=== PATIENT | female | born 1995 | race Asian ===

== ENCOUNTER 2019-10-09 20:49 | Emergency (ER) | payer SELFPAY ==
[2019-10-09 20:57] VITALS: BP 127/76; PULSE 103
--- NOTE | 2019-10-09 20:59 | EDM.PDOC ---
ED HPI GENERAL MEDICAL PROBLEM - General Chief Complaint: Respiratory Problem Stated Complaint: sore throat cough Time Seen by Provider: 10/09/19 20:55 Source of Information: Reports: Patient, RN Notes Reviewed History Limitations: Reports: No Limitations - History of Present Illness INITIAL COMMENTS - FREE TEXT/NARRATIVE: Patient is a 23-year-old female who presents to the ED for evaluation of a cough and sore throat. Patient notes she is 31 weeks , she is a G1, P0. Patient notes that she has had a sore throat and cough for the past 2 days. 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 However this is highly likely. She did receive her flu shot this season. Her SUSHI CHEF is Dr. Molina, she states that the is progressing well and not having any issues at this time. She notes that she has some mild nausea, when she tries to drink a lot of fluids she ends up throwing these up, she states that she does have body aches all over, she does not note that she has had any fevers or chills at home. She has tried some erlin tea with honey to see if this helps the throat, however she feels as if it made her voice a little bit more hoarse than it normally is. Denies any chest pain or shortness of breath, or any problems urinating. Throat Pain Score (Numeric/FACES): 4 - Related Data Allergies Allergy/AdvReac Type Severity Reaction Status Date / Time No Known Allergies Allergy Verified 10/09/19 20:54 Home Meds: Home Meds Oseltamivir [Tamiflu] 75 mg PO BID #10 cap 10/09/19 [Rx] Past Medical History SUSHI CHEF History: Reports: : 1 Para: 0 Social & Family History - Caffeine Use Caffeine Use: Reports: None ED ROS GENERAL - Review of Systems Review Of Systems: See Below Constitutional: Reports: Malaise (generalized). Denies: Fever, Chills HEENT: Reports: Rhinitis, Throat Pain. Denies: Ear Pain, Throat Swelling Respiratory: Reports: Cough. Denies: Shortness of Breath, Sputum Cardiovascular: Denies: Chest Pain GI/Abdominal: Reports: Nausea, Vomiting. Denies: Abdominal Pain, Constipation, Diarrhea : Denies: Dysuria, Frequency, Urgency ED EXAM, GENERAL - Physical Exam Exam: See Below Exam Limited By: No Limitations General Appearance: Alert, WD/WN, No Apparent Distress Eye Exam: Bilateral Eye: EOMI, Normal Inspection, PERRL Ears: Normal External Exam, Normal Canal, Hearing Grossly Normal, Normal TMs Nose: Normal Inspection, No Blood, Nasal Swelling (bilateral injected turbinates ) Throat/Mouth: Normal Inspection, Normal Lips, Normal Teeth, Normal Gums, Normal Oropharynx, Normal Voice, No Airway Compromise Head: Atraumatic, Normocephalic Neck: Normal Inspection, Supple, Non-Tender, Full Range of Motion Respiratory/Chest: No Respiratory Distress, Lungs Clear, Normal Breath Sounds, No Accessory Muscle Use, Chest Non-Tender Cardiovascular: Normal Peripheral Pulses, Regular Rate, Rhythm, No Edema, No Murmur Peripheral Pulses: 3+: Radial (L), Radial (R) GI/Abdominal: Normal Bowel Sounds, Soft, Non-Tender, No Distention, No Mass (Female) Exam: Deferred, Other ( movement appreciated) Extremities: Normal Inspection, Normal Capillary Refill Neurological: Alert, Oriented, Normal Cognition, No Motor/Sensory Deficits Psychiatric: Normal Affect, Normal Mood Skin Exam: Warm, Dry, Intact, Normal Color, No Rash Course - Vital Signs Last Recorded V/S: Last Vital Signs Temp 97.1 F 10/09/19 20:55 Pulse 103 H 10/09/19 20:55 Resp 18 10/09/19 20:55 BP 127/76 10/09/19 20:55 Pulse Ox 95 10/09/19 20:55 - Orders/Labs/Meds Orders: Active Orders 24 hr Category Date Time Status CULTURE STREP A CONFIRMATION [RM] Stat Lab 10/09/19 21:00 Results STREP SCRN A RAPID W CULT CONF [RM] Stat Lab 10/09/19 21:00 Results - Re-Assessments/Exams Free Text/Narrative Re-Assessment/Exam: 10/09/19 21:12 Patient presents to the ED for evaluation of a sore throat and a cough. She will be screened for influenza and strep at this time. However I do believe if the influenza is negative, this might just be a viral upper respiratory infection. Patient will be given a sheet of [id number] medications that are safe to use in for future use. 10/09/19 21:30 Patient did test positive for influenza B at this time. Strep screen was negative, but will be sent for culture for confirmation. Patient would like to start on Tamiflu. Departure - Departure Time of Disposition: 21:30 Disposition: Home, Self-Care 01 Condition: Fair Clinical Impression: Influenza B - Discharge Information *PRESCRIPTION DRUG MONITORING PROGRAM REVIEWED*: No *COPY OF PRESCRIPTION DRUG MONITORING REPORT IN PATIENT KOBY: No Prescriptions: Oseltamivir [Tamiflu] 75 mg PO BID #10 cap Instructions: Influenza, Adult, [id number] Referrals: Lida Molina MD [Primary Care Provider] - Forms: ED Department Discharge Additional Instructions: You have been evaluated in the ED for your sore throat and cough. You did test positive for influenza B. Strep screen was negative at today's visit, however this will be sent for culture for confirmation, you will be made notified if you should need antibiotics for this. Please try to limit your exposure to others until you are 24 hours fever free. You were given a prescription for Tamiflu, please take 1 tab twice daily for the next 5 days. You may also take Tylenol 500 mg every 6 hours as needed for further relief. You were given a educational handout on medications that are safe to take in , please use at your leisure to help guide medication choices during your . If there are any questions, please do not hesitate to ask your SUSHI CHEF. Recommend clear fluid intake as well as a bland diet until you can tolerate normal foods. However if you feel hungry, please eat. Please return to the ED if your symptoms should change or worsen. Sepsis Event Note - Evaluation Sepsis Screening Result: No Definite Risk - Focused Exam Vital Signs: Vital Signs Temp Pulse Resp BP Pulse Ox 10/09/19 20:55 97.1 F 103 H 18 127/76 95 Date Exam was Performed: 10/09/19 Time Exam was Performed: 21:33 - My Orders Last 24 Hours: My Active Orders 10/09/19 21:00 CULTURE STREP A CONFIRMATION [RM] Stat STREP SCRN A RAPID W CULT CONF [RM] Stat - Assessment/Plan Last 24 Hours: My Active Orders 10/09/19 21:00 CULTURE STREP A CONFIRMATION [RM] Stat STREP SCRN A RAPID W CULT CONF [RM] Stat
== END 2019-10-09 22:02 | disposition home or self-care (01) ==
LOC: JD.ED 20:49
DX: O98.513 Other viral diseases complicating pregnancy, third trimester (principal); J11.1 Influenza due to unidentified influenza virus with other respiratory manifestations; Z3A.31 31 weeks gestation of pregnancy
CPT/HCPCS: 87081; 87430; 87804; 99282; 99283

== ENCOUNTER 2019-11-20 23:30 | Inpatient (IN) | payer BC, OTHER, SELFPAY ==
[2019-11-21] MEDS ORDERED: Promethazine 25 MG/ML SDV IM ONE (01:43)
[2019-11-21] MEDS ORDERED: Morphine 4 MG/ML Syringe IM ONE (01:43)
[2019-11-21] MEDS ORDERED: Ondansetron 4 MG/2 ML SDV IVPUSH PRN (05:08)
[2019-11-21] MEDS ORDERED: Nalbuphine 10 MG/ML Syringe IVPUSH PRN (05:08)
[2019-11-21] MEDS ORDERED: Sodium Chloride 0.9% 10 ML Syringe FLUSH PRN (05:08)
[2019-11-21] MEDS ORDERED: Oxytocin/Lactated Ringers 10 UNIT/1,000 ML BAG IV SCH (05:15)
--- NOTE | 2019-11-21 07:39 | PCM.LDHP ---
L&D History of Present Illness - General Date of Service: 11/21/19 Admit Problem/Dx: Patient Status Order with Admit Dx/Problem 11/20/19 23:38 Patient Status [ADT] Routine 11/21/19 05:08 Patient Status [ADT] Routine Admission Diagnosis/Problem Admission Diagnosis/Problem - History of Present Illness Introduction:: 24 year old with regular contractions. Cervical change from 3 to 4.5. Pain Score: 9 - Related Data Allergies/Adverse Reactions: Allergies Allergy/AdvReac Type Severity Reaction Status Date / Time No Known Allergies Allergy Verified 11/20/19 23:37 Home Medications: Home Meds Vits #93/Iron Fum/FA [ Formula Tablet] 11/20/19 [History] Past Medical History - Past Health History Medical/Surgical History: Denies Medical/Surgical History Cardiovascular History: Reports: Other (See Below) Other Cardiovascular History: patient states she had cardiac workup in 2017 but does not specifically know for what. 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 OB/BYN History: , currently 31 weeks pragnant Neurological History: Reports: Migraines Social & Family History - Tobacco Use Smoking Status *Q: Never Smoker - Caffeine Use Caffeine Use: Reports: None - Recreational Drug Use Recreational Drug Use: No H&P Review of Systems - Review of Systems: Review Of Systems: See Below General: Reports: No Symptoms HEENT: Reports: No Symptoms Pulmonary: Reports: No Symptoms Cardiovascular: Reports: No Symptoms Gastrointestinal: Reports: No Symptoms Genitourinary: Reports: No Symptoms Musculoskeletal: Reports: No Symptoms Skin: Reports: No Symptoms Psychiatric: Reports: No Symptoms Neurological: Reports: No Symptoms Hematologic/Lymphatic: Reports: No Symptoms Immunologic: Reports: No Symptoms L&D Exam - Exam Exam: See Below - Vital Signs Vital Signs: Last Vital Signs Temp 36.6 C 11/20/19 23:36 Pulse 79 11/20/19 23:36 Resp 15 11/20/19 23:36 BP 138/74 11/20/19 23:36 Pulse Ox Weight: 80.558 kg - OB Specific Contraction Intensity: Moderate to Strong Movement: Active Heart Tones: Present Heart Rate (FHR) Variability: Moderate (6-25 bmp) Presentation: Vertex - Garcia Score Garcia Score Cervix Position: Midposition Garcia Score Consistency: Soft Garcia Score Effacement: 51-70% Garcia Score Dilation: > 5 cm Garcia Score Infant's Station: -2 Garcia Score Total: 9 - Exam General: Alert, Oriented HEENT: PERRLA, Conjunctiva Clear, EACs Clear, EOMI, Hearing Intact, Mucosa Moist & [place], Nares Patent, Normal Nasal Septum, Posterior Pharynx Clear, TMs Clear Neck: Supple, Trachea Midline Lungs: Clear to Auscultation, Normal Respiratory Effort Cardiovascular: Regular Rate, Regular Rhythm GI/Abdominal Exam: Normal Bowel Sounds, Soft, Non-Tender, No Organomegaly, No Distention, No Abnormal Bruit, No Mass, Pelvis Stable Rectal Exam: Normal Exam, Normal Rectal Tone Back Exam: Normal Inspection, Full Range of Motion Extremities: Normal Inspection, Normal Range of Motion, Non-Tender, No Pedal Edema, Normal Capillary Refill Skin: Warm, Dry, Intact Neurological: Cranial Nerves Intact, Reflexes Equal Bilateral Psychiatric: Alert, Normal Affect, Normal Mood - Patient Data Lab Results Last 24 hrs: Laboratory Results - last 24 hr 11/21/19 11/21/19 Range/Units 00:28 05:35 WBC 15.80 H (3.98-10.04) K/mm3 RBC 3.87 L (3.98-5.22) M/mm3 Hgb 11.9 (11.2-15.7) gm/dl Hct 36.9 (34.1-44.9) % MCV 95.3 H (79.4-94.8) fl MCH 30.7 (25.6-32.2) pg MCHC 32.2 (32.2-35.5) g/dl RDW Std Deviation 50.7 H (36.4-46.3) fL Plt Count 229 (182-369) K/mm3 MPV 10.6 (9.4-12.3) fl Neut % (Auto) 77.9 H (34.0-71.1) % Lymph % (Auto) 12.4 L (19.3-51.7) % [facility] % (Auto) 8.7 (4.7-12.5) % Eos % (Auto) 0.3 L (0.7-5.8) Baso % (Auto) 0.1 (0.1-1.2) % Neut # (Auto) 12.30 H (1.56-6.13) K/mm3 Lymph # (Auto) 1.96 (1.18-3.74) K/mm3 [facility] # (Auto) 1.38 H (0.24-0.36) K/mm3 Eos # (Auto) 0.04 (0.04-0.36) K/mm3 Baso # (Auto) 0.02 (0.01-0.08) K/mm3 Urine Color Yellow (Yellow) Urine Appearance Clear (Clear) Urine pH 7.0 (5.0-8.0) Ur Specific [place] 1.015 (1.005-1.030) Urine Protein Negative (Negative) Urine Glucose (UA) Negative (Negative) Urine Ketones Negative (Negative) Urine Occult Blood 2+ H (Negative) Urine Nitrite Negative (Negative) Urine Bilirubin Negative (Negative) Urine Urobilinogen 0.2 (0.2-1.0) Ur Leukocyte Esterase Trace H (Negative) Urine RBC 0-5 (0-5) /hpf Urine WBC 0-5 (0-5) /hpf Ur Squamous Epith Cells 0-5 (0-5) /hpf Urine Bacteria Few (FEW) /hpf Urine Mucus Rare (FEW) /hpf Result Diagrams: 11/21/19 05:35 Problem List Initiated/Reviewed/Updated: Yes Orders Last 24hrs: Active Orders 24 hr Category Date Time Status Patient Status [ADT] Routine ADT 11/21/19 05:08 Active Activity as Tolerated [RC] PFP Care 11/21/19 05:08 Active Communication Order [RC] ASDIRECTED Care 11/21/19 05:08 Active Heart Tones [RC] ASDIRECTED Care 11/21/19 05:08 Active Non Stress Test [RC] PER UNIT ROUTINE Care 11/20/19 23:38 Active Notify Provider [RC] PFP Care 11/21/19 05:08 Active Notify Provider [RC] PRN Care 11/21/19 05:08 Active Peripheral IV Care [RC] . DIRECTED Care 11/21/19 05:08 Active Vital Signs [RC] PER UNIT ROUTINE Care 11/20/19 23:38 Active Regular Diet [DIET] Diet 11/21/19 Breakfast Active RAPID PLASMA REAGIN,RPR [CHEM] Routine Lab 11/21/19 05:35 Received TYPE AND SCREEN [BBK] Stat Lab 11/21/19 05:35 Received Lactated Ringers [Ringers, Lactated] 1,000 ml Med 11/21/19 05:15 Active IV ASDIRECTED Nalbuphine [Nubain] Med 11/21/19 05:08 Active 10 mg IVPUSH Q2H PRN Ondansetron [Zofran] Med 11/21/19 05:08 Active 4 mg IVPUSH Q4H PRN Oxytocin/Lactated Ringers [Pitocin in LR 10 Units/1,000 Med 11/21/19 05:15 Active ML] 10 unit in 1,000 ml IV .CONTINUOUS Sodium Chloride 0.9% [Saline Flush] Med 11/21/19 05:08 Active 10 ml FLUSH ASDIRECTED PRN Electronic Heart Tones Ext w TOCO [WOMSER] Oth 11/21/19 05:08 Ordered Routine Electronic Heart Tones Internal [WOMSER] Per Unit Oth 11/21/19 05:08 Ordered Routine Peripheral IV Insertion Adult [OM.PC] Routine Oth 11/21/19 05:08 Ordered Resuscitation Status Routine Resus Stat 11/20/19 23:38 Ordered Medication Orders Lactated Ringer's (Ringers, Lactated) 1,000 mls @ 100 mls/hr IV ASDIRECTED RAOUL Oxytocin/Lactated Ringer's (Pitocin In Lr 10 Units/1,000 Ml) 10 unit in 1,000 mls @ 500 mls/hr IV .CONTINUOUS RAOUL Nalbuphine HCl (Nubain) 10 mg IVPUSH Q2H PRN PRN Reason: Pain Ondansetron HCl (Zofran) 4 mg IVPUSH Q4H PRN PRN Reason: Nausea/Vomiting Sodium Chloride (Saline Flush) 10 ml FLUSH ASDIRECTED PRN PRN Reason: Keep Vein Open Assessment/Plan Comment:: Admit AROM Augment if needed. Anticipate unless otherwise indicated
[2019-11-21] MEDS: Lactated Ringers 1,000 ML IV SCH ×3 (07:56→11:33)
[2019-11-21] MEDS ORDERED: ePHEDrine 50 MG/ML SDV IVPUSH PRN (08:26)
[2019-11-21] MEDS ORDERED: Bupivacaine/fentaNYL/NS 100 ML Bag EPIDUR PRN (08:26)
[2019-11-21] MEDS ORDERED: fentaNYL 100 MCG/2 ML SDV EPIDUR PRN (08:26)
[2019-11-21] MEDS ORDERED: diphenhydrAMINE 50 MG/ML SDV IVPUSH PRN (08:26)
--- NOTE | 2019-11-21 08:57 | PCM.PREANE ---
Preanesthetic Assessment - Anesthesia/Transfusion/Family Hx Anesthesia History: No Prior Anesthesia Transfusion History: No Prior Transfusion(s) - Review of Systems General: No Symptoms Pulmonary: No Symptoms Cardiovascular: No Symptoms Gastrointestinal: No Symptoms Neurological: No Symptoms Other: Reports: None - Physical Assessment Vital Signs: Last Vital Signs Temp 98 F 11/20/19 23:36 Pulse 79 11/20/19 23:36 Resp 15 11/20/19 23:36 BP 138/74 11/20/19 23:36 Pulse Ox Height: 1.63 m Weight: 80.558 kg ASA Class: 2 Mental Status: Alert & Oriented x3 Airway Class: Mallampati = 3 Dentition: Reports: Normal Dentition Thyro-Mental Finger Breadths: 3 Mouth Opening Finger Breadths: 3 ROM/Head Extension: Full Lungs: Clear to Auscultation, Normal Respiratory Effort Cardiovascular: Regular Rate, Regular Rhythm - Lab Values: Laboratory Last Values WBC 15.80 K/mm3 (3.98-10.04) H 11/21/19 05:35 RBC 3.87 M/mm3 (3.98-5.22) L 11/21/19 05:35 Hgb 11.9 gm/dl (11.2-15.7) 11/21/19 05:35 Hct 36.9 % (34.1-44.9) 11/21/19 05:35 MCV 95.3 fl (79.4-94.8) H 11/21/19 05:35 MCH 30.7 pg (25.6-32.2) 11/21/19 05:35 MCHC 32.2 g/dl (32.2-35.5) 11/21/19 05:35 RDW Std Deviation 50.7 fL (36.4-46.3) H 11/21/19 05:35 Plt Count 229 K/mm3 (182-369) 11/21/19 05:35 MPV 10.6 fl (9.4-12.3) 11/21/19 05:35 Neut % (Auto) 77.9 % (34.0-71.1) H 11/21/19 05:35 Lymph % (Auto) 12.4 % (19.3-51.7) L 11/21/19 05:35 [place] % (Auto) 8.7 % (4.7-12.5) 11/21/19 05:35 Eos % (Auto) 0.3 (0.7-5.8) L 11/21/19 05:35 Baso % (Auto) 0.1 % (0.1-1.2) 11/21/19 05:35 Neut # (Auto) 12.30 K/mm3 (1.56-6.13) H 11/21/19 05:35 Lymph # (Auto) 1.96 K/mm3 (1.18-3.74) 11/21/19 05:35 [place] # (Auto) 1.38 K/mm3 (0.24-0.36) H 11/21/19 05:35 Eos # (Auto) 0.04 K/mm3 (0.04-0.36) 11/21/19 05:35 Baso # (Auto) 0.02 K/mm3 (0.01-0.08) 11/21/19 05:35 Urine Color Yellow (Yellow) 11/21/19 00:28 Urine Appearance Clear (Clear) 11/21/19 00: Urine pH 7.0 (5.0-8.0) 11/21/19 00:28 Ur Specific [place] 1.015 (1.005-1.030) 11/21/19 00: Urine Protein Negative (Negative) 11/21/19 00: Urine Glucose (UA) Negative (Negative) 11/21/19 00: Urine Ketones Negative (Negative) 11/21/19 00: Urine Occult Blood 2+ (Negative) H 11/21/19 00: Urine Nitrite Negative (Negative) 11/21/19 00: Urine Bilirubin Negative (Negative) 11/21/19 00: Urine Urobilinogen 0.2 (0.2-1.0) 11/21/19 00:28 Ur Leukocyte Esterase Trace (Negative) H 11/21/19 00: Urine RBC 0-5 /hpf (0-5) 11/21/19 00: Urine WBC 0-5 /hpf (0-5) 11/21/19 00: Ur Squamous Epith Cells 0-5 /hpf (0-5) 11/21/19 00: Urine Bacteria Few /hpf (FEW) 11/21/19 00: Urine Mucus Rare /hpf (FEW) 11/21/19 00:28 - Allergies Allergies/Adverse Reactions: Allergies Allergy/AdvReac Type Severity Reaction Status Date / Time No Known Allergies Allergy Verified 11/20/19 23:37 - Acknowledgements Anesthesia Type Planned: Epidural Pt an Appropriate Candidate for the Planned Anesthesia: Yes Alternatives and Risks of Anesthesia Discussed w Pt/Guardian: Yes Pt/Guardian Understands and Agrees with Anesthesia Plan: Yes PreAnesthesia Questionnaire - Past Health History Medical/Surgical History: Denies Medical/Surgical History Cardiovascular History: Reports: Other (See Below) Other Cardiovascular History: patient states she had cardiac workup in 2017 but does not specifically know for what. 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 OB/BYN History: , currently 31 weeks pragnant Neurological History: Reports: Migraines - SUBSTANCE USE Smoking Status *Q: Never Smoker Recreational Drug Use History: No - HOME MEDS Home Medications: Home Meds Vits #93/Iron Fum/FA [ Formula Tablet] 11/20/19 [History] - CURRENT (IN HOUSE) MEDS Current Meds: Current Medications Diphenhydramine HCl (Benadryl) 25 mg IVPUSH Q6H PRN PRN Reason: pruritis Ephedrine Sulfate (Ephedrine Sulfate) 5 mg IVPUSH ASDIRECTED PRN PRN Reason: Hypotension Fentanyl (Sublimaze) 100 mcg EPIDUR Q3H PRN PRN Reason: Pain Fentanyl/Bupivacaine HCl (Fentanyl/Bupivacaine/Ns 2 Mcg-0.125% 100 Ml) 100 ml EPIDUR ASDIRECTED PRN PRN Reason: Pain Lactated Ringer's (Ringers, Lactated) 1,000 mls @ 100 mls/hr IV ASDIRECTED RAOUL Last Admin: 11/21/19 07:56 Dose: 100 mls/hr Oxytocin/Lactated Ringer's (Pitocin In Lr 10 Units/1,000 Ml) 10 unit in 1,000 mls @ 500 mls/hr IV .CONTINUOUS RAOUL Nalbuphine HCl (Nubain) 10 mg IVPUSH Q2H PRN PRN Reason: Pain Ondansetron HCl (Zofran) 4 mg IVPUSH Q4H PRN PRN Reason: Nausea/Vomiting Sodium Chloride (Saline Flush) 10 ml FLUSH ASDIRECTED PRN PRN Reason: Keep Vein Open Discontinued Medications Morphine Sulfate (Morphine) 4 mg IM ONETIME ONE Stop: 11/21/19 01:44 Last Admin: 11/21/19 01:58 Dose: 4 mg Promethazine HCl (Phenergan) 25 mg IM ONETIME ONE Stop: 11/21/19 01:44 Last Admin: 11/21/19 01:57 Dose: 25 mg
--- NOTE | 2019-11-21 15:31 | PCM.SN ---
- Free Text/Narrative Note: Stage I - Patient presented in labor. AROM meconium stained fluid. Progressed to complete with epidural. Stage II - of viable male, weight 2980, 8/9 APGARS at 1513. Head delivered in controlled manner over intact perineum. Body and shoulders followed without difficulty. Positive cry. To maternal abdomen. Cord clamped and cut. Stage III - of intact placenta. 3vc. EBL 400. Small bilateral labial lacerations repaired with 3-0 vicryl.
[2019-11-21] MEDS ORDERED: Benzocaine/Menthol 20%-0.5% Spray 56 GM Canister TOP PRN (15:56)
[2019-11-21] MEDS ORDERED: Hydrocortisone Acetate 25 MG Supp RECTAL PRN (15:56)
[2019-11-21] MEDS ORDERED: Witch Hazel Medicated Pads 40/Jar TOP PRN (15:56)
[2019-11-21] MEDS: Ibuprofen 600 MG Tab PO PRN (21:26)
[2019-11-22] MEDS ORDERED: Lidocaine 1.5% with EPINEPHrine 1:200,000 5 ML Amp ONE
[2019-11-22] MEDS: Ibuprofen 600 MG Tab PO PRN (03:23)
--- NOTE | 2019-11-22 07:46 | PCM.PNPP ---
- General Info Date of Service: 11/22/19 Functional Status: Reports: Pain Controlled - Review of Systems General: Reports: No Symptoms HEENT: Reports: No Symptoms Pulmonary: Reports: No Symptoms Cardiovascular: Reports: No Symptoms Gastrointestinal: Reports: No Symptoms Genitourinary: Reports: No Symptoms Musculoskeletal: Reports: No Symptoms Skin: Reports: No Symptoms Neurological: Reports: No Symptoms Psychiatric: Reports: No Symptoms - Patient Data Vital Signs - Most Recent: Last Vital Signs Temp 36.6 C 11/22/19 02:44 Pulse 98 11/22/19 02:44 Resp 16 11/22/19 02:44 BP 122/77 11/22/19 02:44 Pulse Ox 99 11/22/19 02:44 Weight - Most Recent: 80.558 kg I&O - Last 24 Hours: Intake & Output 11/21/19 11/22/19 11/22/19 22:59 06:59 14:59 Intake Total 2710 Balance 2710 Lab Results - Last 24 Hours: Laboratory Results - last 24 hr 11/21/19 11/21/19 Range/Units 05:35 05:35 RPR Non-reactive (NONREACTIVE) Blood Type O POSITIVE Gel Antibody Screen Negative Med Orders - Current: Current Medications Benzocaine/Menthol (Dermoplast Pain Relief [place]) 0 gm TOP ASDIRECTED PRN PRN Reason: Perineal Comfort Measure Last Admin: 11/21/19 17:17 Dose: 1 can Hydrocortisone Acetate (Anucort-Hc) 25 mg RECTAL BID PRN PRN Reason: Hemorrhoid pain Ibuprofen (Motrin) 600 mg PO Q6H PRN PRN Reason: Mild pain or fever Last Admin: 11/22/19 03:23 Dose: 600 mg Witch Shannan (Tucks) 1 pad TOP ASDIRECTED PRN PRN Reason: Pain Last Admin: 11/21/19 17:16 Dose: 1 tub Discontinued Medications Diphenhydramine HCl (Benadryl) 25 mg IVPUSH Q6H PRN PRN Reason: pruritis Ephedrine Sulfate (Ephedrine Sulfate) 5 mg IVPUSH ASDIRECTED PRN PRN Reason: Hypotension Fentanyl (Sublimaze) 100 mcg EPIDUR Q3H PRN PRN Reason: Pain Last Admin: 11/21/19 09:07 Dose: 100 mcg Fentanyl/Bupivacaine HCl (Fentanyl/Bupivacaine/Ns 2 Mcg-0.125% 100 Ml) 100 ml EPIDUR ASDIRECTED PRN PRN Reason: Pain Last Admin: 11/21/19 09:07 Dose: 100 ml Lactated Ringer's (Ringers, Lactated) 1,000 mls @ 100 mls/hr IV ASDIRECTED RAOUL Last Admin: 11/21/19 11:33 Dose: 100 mls/hr Oxytocin/Lactated Ringer's (Pitocin In Lr 10 Units/1,000 Ml) 10 unit in 1,000 mls @ 500 mls/hr IV .CONTINUOUS RAOUL Last Admin: 11/21/19 15:15 Dose: 500 mls/hr Morphine Sulfate (Morphine) 4 mg IM ONETIME ONE Stop: 11/21/19 01:44 Last Admin: 11/21/19 01:58 Dose: 4 mg Nalbuphine HCl (Nubain) 10 mg IVPUSH Q2H PRN PRN Reason: Pain Ondansetron HCl (Zofran) 4 mg IVPUSH Q4H PRN PRN Reason: Nausea/Vomiting Promethazine HCl (Phenergan) 25 mg IM ONETIME ONE Stop: 11/21/19 01:44 Last Admin: 11/21/19 01:57 Dose: 25 mg Sodium Chloride (Saline Flush) 10 ml FLUSH ASDIRECTED PRN PRN Reason: Keep Vein Open - Infant Interaction Infant Disposition, : to Nursery Support Person: Significant Other - Recovery Exam Fundal Tone: Firm Fundal Level: At Umbilicus Fundal Placement: Midline Lochia Amount: Small Lochia Color: Rubra/Red Perineum Description: Other (see below) Other Perinuem Description: 1st degree with repair Bladder Status: Voiding Urinary Elimination: Voided - Exam General: Alert, Oriented HEENT: Pupils Equal Neck: Supple Lungs: Clear to Auscultation, Normal Respiratory Effort Cardiovascular: Regular Rate, Regular Rhythm GI/Abdominal Exam: Normal Bowel Sounds, Soft, Non-Tender, No Organomegaly, No Distention, No Abnormal Bruit, No Mass Extremities: Normal Inspection, Normal Range of Motion, Non-Tender, No Pedal Edema, Normal Capillary Refill Skin: Warm, Dry, Intact Wound/Incisions: Healing Well Neurological: No New Focal Deficit Psy/Mental Status: Alert, Normal Affect, Normal Mood - Problem List Review Problem List Initiated/Reviewed/Updated: Yes - My Orders Last 24 Hours: My Active Orders 11/21/19 15:56 Activity as Tolerated [RC] PER UNIT ROUTINE Vital Signs [RC] 09,13,21,03 Benzocaine/Menthol [Dermoplast Pain Relief [place]] See Dose Instructions TOP ASDIRECTED PRN Hydrocortisone Acetate [Anucort-HC] 25 mg RECTAL BID PRN Ibuprofen [Motrin] 600 mg PO Q6H PRN Witch Shannan [Tucks] 1 pad TOP ASDIRECTED PRN Assess Lochia [WOMSER] Per Unit Routine Assess Uterine Involution [WOMSER] Per Unit Routine Breast Pump [WOMSER] Per Unit Routine Heat Therapy [OM.PC] PRN Medication Administration Instruction [OM.PC] Routine Perineal Care [OM.PC] Per Unit Routine Sitz Bath [OM.PC] Per Unit Routine 11/22/19 15:56 Heat Therapy [OM.PC] PRN - Assessment Assessment:: PPD1 Doing well. Breast feeding going well. NO complaints - Plan Plan:: Probably home tomorrow
--- NOTE | 2019-11-22 17:11 | PCM48HPAN ---
Post Anesthesia Note - EVALUATION WITHIN 48HRS OF ANESTHETIC Vital Signs in Normal Range: Yes Patient Participated in Evaluation: Yes Respiratory Function Stable: Yes Airway Patent: Yes Cardiovascular Function Stable: Yes Hydration Status Stable: Yes Pain Control Satisfactory: Yes Nausea and Vomiting Control Satisfactory: Yes Mental Status Recovered: Yes Vital Signs: Last Vital Signs Temp 97.2 F 11/22/19 09:29 Pulse 85 11/22/19 09:29 Resp 14 11/22/19 09:29 BP 115/92 H 11/22/19 09:29 Pulse Ox 99 11/22/19 09:29 - COMMENTS/OBSERVATIONS Free Text/Narrative:: Patient is on her day 1. Stated understanding about possible backaches following epidural anesthesia. Mentions having some minor back soreness at this time. Explanation given about importance of avoiding back straining. Denies any headache or lightheadedness at this time. Comfortable now. Ambulating, no difficulty urinating.
[2019-11-23 03:29] VITALS: BP 119/70; PULSE 82
--- NOTE | 2019-11-26 10:22 | PCM.DCSUM1 ---
Discharge Summary - Hospital Course Diagnosis: Stroke: No - Discharge Data Discharge Date: 11/23/19 Discharge Disposition: Home, Self-Care 01 Condition: Good - Referral to Home Health Primary Care Physician: Jessica Chen MD - Patient Instructions Diet: Usual Diet as Tolerated Activity: No Strenuous Activities Driving: May Drive Today Showering/Bathing: May Shower Wound/Incision Care: Keep Operative Site/Wound Site Clean and Dry Notify Provider of: Fever, Increased Pain, Swelling and Redness, Drainage, Nausea and/or Vomiting - Discharge Plan *PRESCRIPTION DRUG MONITORING PROGRAM REVIEWED*: No *COPY OF PRESCRIPTION DRUG MONITORING REPORT IN PATIENT KOBY: No Home Medications: Home Meds Vits #93/Iron Fum/FA [ Formula Tablet] 11/20/19 [History] Patient Handouts: Vaginal Delivery, Care After Referrals: Lida Molina MD [Physician] - (2 weeks) - Discharge Summary/Plan Comment DC Time >30 min.: No - General Info Date of Service: 11/23/19 Functional Status: Reports: Pain Controlled - Review of Systems General: Reports: No Symptoms HEENT: Reports: No Symptoms Pulmonary: Reports: No Symptoms Cardiovascular: Reports: No Symptoms Gastrointestinal: Reports: No Symptoms Genitourinary: Reports: No Symptoms Musculoskeletal: Reports: No Symptoms Skin: Reports: No Symptoms Neurological: Reports: No Symptoms Psychiatric: Reports: No Symptoms - Patient Data Vitals - Most Recent: Last Vital Signs Temp 36.7 C 11/23/19 03:17 Pulse 82 11/23/19 03:17 Resp 16 11/23/19 03:17 BP 119/70 11/23/19 03:17 Pulse Ox 97 11/23/19 03:17 Weight - Most Recent: 80.558 kg Med Orders - Current: Current Medications Discontinued Medications Benzocaine/Menthol (Dermoplast Pain Relief [place]) 0 gm TOP ASDIRECTED PRN PRN Reason: Perineal Comfort Measure Last Admin: 11/21/19 17:17 Dose: 1 can Diphenhydramine HCl (Benadryl) 25 mg IVPUSH Q6H PRN PRN Reason: pruritis Ephedrine Sulfate (Ephedrine Sulfate) 5 mg IVPUSH ASDIRECTED PRN PRN Reason: Hypotension Fentanyl (Sublimaze) 100 mcg EPIDUR Q3H PRN PRN Reason: Pain Last Admin: 11/21/19 09:07 Dose: 100 mcg Fentanyl/Bupivacaine HCl (Fentanyl/Bupivacaine/Ns 2 Mcg-0.125% 100 Ml) 100 ml EPIDUR ASDIRECTED PRN PRN Reason: Pain Last Admin: 11/21/19 09:07 Dose: 100 ml Hydrocortisone Acetate (Anucort-Hc) 25 mg RECTAL BID PRN PRN Reason: Hemorrhoid pain Lactated Ringer's (Ringers, Lactated) 1,000 mls @ 100 mls/hr IV ASDIRECTED RAOUL Last Admin: 11/21/19 11:33 Dose: 100 mls/hr Oxytocin/Lactated Ringer's (Pitocin In Lr 10 Units/1,000 Ml) 10 unit in 1,000 mls @ 500 mls/hr IV .CONTINUOUS RAOUL Last Admin: 11/21/19 15:15 Dose: 500 mls/hr Ibuprofen (Motrin) 600 mg PO Q6H PRN PRN Reason: Mild pain or fever Last Admin: 11/22/19 03:23 Dose: 600 mg Lidocaine/Epinephrine (Xylocaine-Mpf 1.5% W/Epinephrine 1:200,000) 5 ml .ROUTE .STK-MED ONE Stop: 11/22/19 00:01 Morphine Sulfate (Morphine) 4 mg IM ONETIME ONE Stop: 11/21/19 01:44 Last Admin: 11/21/19 01:58 Dose: 4 mg Nalbuphine HCl (Nubain) 10 mg IVPUSH Q2H PRN PRN Reason: Pain Ondansetron HCl (Zofran) 4 mg IVPUSH Q4H PRN PRN Reason: Nausea/Vomiting Promethazine HCl (Phenergan) 25 mg IM ONETIME ONE Stop: 11/21/19 01:44 Last Admin: 11/21/19 01:57 Dose: 25 mg Sodium Chloride (Saline Flush) 10 ml FLUSH ASDIRECTED PRN PRN Reason: Keep Vein Open Witch Shannan (Tucks) 1 pad TOP ASDIRECTED PRN PRN Reason: Pain Last Admin: 11/21/19 17:16 Dose: 1 tub - Exam General: Reports: Alert, Oriented HEENT: Reports: Pupils Equal, Pupils Reactive, EOMI, Mucous Membr. Moist/Draper Neck: Reports: Supple Lungs: Reports: Clear to Auscultation, Normal Respiratory Effort Cardiovascular: Reports: Regular Rate, Regular Rhythm GI/Abdominal Exam: Normal Bowel Sounds, Soft, Non-Tender, No Organomegaly, No Distention, No Abnormal Bruit, No Mass, Pelvis Stable Rectal (Female) Exam: Normal Exam, Normal Rectal Tone Back Exam: Reports: Normal Inspection, Full Range of Motion Extremities: Normal Inspection, Normal Range of Motion, Non-Tender, No Pedal Edema, Normal Capillary Refill Skin: Reports: Warm, Dry, Intact Wound/Incisions: Reports: Healing Well Neurological: Reports: No New Focal Deficit Psy/Mental Status: Reports: Alert, Normal Affect, Normal Mood
== END 2019-11-23 10:32 | disposition home or self-care (01) | DRG 807 ==
LOC: JD.OBCHECK 23:30 → JD.OB 11-21 05:08 → OBSVTOIN 11-21 15:13 → JD.OB 11-21 15:14
PROVIDERS: ADMIT Obstetrics & Gynecology; ATTEND Obstetrics & Gynecology
PROC: 10E0XZZ Delivery of Products of Conception, External Approach (ICD-10-PCS; principal; 2019-11-21)
PROC: 10907ZC Drainage of Amniotic Fluid, Therapeutic from Products of Conception, Via Natural or Artificial Opening (ICD-10-PCS; 2019-11-21)
PROC: 0HQ9XZZ Repair Perineum Skin, External Approach (ICD-10-PCS; 2019-11-21)
PROC: 3E0R3BZ Introduction of Anesthetic Agent into Spinal Canal, Percutaneous Approach (ICD-10-PCS; 2019-11-21)
DX: O77.0 Labor and delivery complicated by meconium in amniotic fluid (principal); Z37.0 Single live birth; Z79.899 Other long term (current) drug therapy; O70.0 First degree perineal laceration during delivery; Z3A.37 37 weeks gestation of pregnancy
CPT/HCPCS: 01967; 36415; 51702; 59025; 59409; 81001; 85025; 86592; 86850; 86900; 86901; 96372; A9270-GY; J2270; J2550; J2590; J3010; J7120

== ENCOUNTER 2021-01-02 07:06 | Inpatient (IN) | payer MEDICAID ==
[2021-01-02] MEDS ORDERED: Nalbuphine 10 MG/1 ML Vial IVPUSH PRN (07:11)
[2021-01-02] MEDS ORDERED: Sodium Chloride 0.9% 10 ML Syringe FLUSH PRN (07:11)
[2021-01-02] MEDS ORDERED: Ondansetron 4 MG/2 ML SDV IVPUSH PRN (07:11)
--- NOTE | 2021-01-02 07:14 | PCM.LDHP ---
L&D History of Present Illness - General Date of Service: 01/02/21 Admit Problem/Dx: Patient Status Order with Admit Dx/Problem 01/02/21 07:11 Patient Status [ADT] Routine Admission Diagnosis/Problem Admission Diagnosis/Problem Normal in third trimester Source of Information: Patient History Limitations: Reports: No Limitations - History of Present Illness Introduction:: Patient is a 25 y/o at 39 2/7 wks who presents for elective IOL. Doing well today. Some contractions. No LOF. 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 (Approximate): Neurological History: Reports: Migraines - Past Surgical History Other Surgical History Comment: No past surgical history Social & Family History - Tobacco Use Tobacco Use Status *Q: Never Tobacco User - Caffeine Use Caffeine Use: Reports: None - Alcohol Use Alcohol Use History: No - Recreational Drug Use Recreational Drug Use: No H&P Review of Systems - Review of Systems: Review Of Systems: See Below General: Reports: No Symptoms Pulmonary: Reports: No Symptoms Cardiovascular: Reports: No Symptoms Gastrointestinal: Reports: No Symptoms Genitourinary: Reports: No Symptoms Musculoskeletal: Reports: No Symptoms Psychiatric: Reports: No Symptoms Neurological: Reports: No Symptoms L&D Exam - Exam Exam: See Below - OB Specific Contraction Intensity: Irritability Movement: Active Heart Tones: Present Heart Tones per Min: 140 Heart Rate (FHR) Variability: Moderate (6-25 bmp) Presentation: Vertex - Garcia Score Garcia Score Cervix Position: Midposition Garcia Score Consistency: Soft Garcia Score Effacement: 51-70% Garcia Score Dilation: 3-4 cm Garcia Score 's Station: -2 Garcia Score Total: 8 - Exam General: Alert, Oriented, Cooperative Lungs: Clear to Auscultation, Normal Respiratory Effort Cardiovascular: Regular Rate, Regular Rhythm GI/Abdominal Exam: Soft, Non-Tender Genitourinary: Normal external exam Extremities: Normal Inspection Skin: Warm, Dry, Intact - Patient Data Result Diagrams: 01/02/21 07:30 - Problem List (1) 39 weeks gestation of SNOMED Code(s): 07692412 ICD Code: Z3A.39 - 39 WEEKS GESTATION OF Status: Acute Current Visit: Yes (2) Elective induction of labor planned SNOMED Code(s): 632933367 ICD Code: [id number] - Status: Acute Current Visit: Yes Problem List Initiated/Reviewed/Updated: Yes Orders Last 24hrs: Active Orders 24 hr Category Date Time Status Patient Status [ADT] Routine ADT 01/02/21 07:11 Ordered Communication Order [RC] ASDIRECTED Care 01/02/21 07:11 Ordered Communication Order [RC] ASDIRECTED Care 01/02/21 07:11 Ordered Communication Order [RC] ASDIRECTED Care 01/02/21 07:11 Ordered Non Stress Test [RC] PER UNIT ROUTINE Care 01/02/21 07:11 Ordered Notify Provider [RC] ASDIRECTED Care 01/02/21 07:11 Ordered Notify Provider [RC] PRN Care 01/02/21 07:11 Ordered Peripheral IV Care [RC] . DIRECTED Care 01/02/21 07:12 Ordered Up ad [place] [RC] ASDIRECTED Care 01/02/21 07:12 Ordered Vaginal Exam [RC] ASDIRECTED Care 01/02/21 07:11 Ordered Vital Signs [RC] ASDIRECTED Care 01/02/21 07:11 Ordered Vital Signs [RC] PER UNIT ROUTINE Care 01/02/21 07:11 Ordered Regular Diet [DIET] Diet 01/02/21 Breakfast Ordered CBC W/O DIFF,HEMOGRAM [HEME] Routine Lab 01/02/21 07:11 Ordered CORONAVIRUS COVID-19 BE [MOLEC] Stat Lab 01/02/21 07:14 Ordered RAPID PLASMA REAGIN,RPR [CHEM] Routine Lab 01/02/21 07:11 Ordered TYPE AND SCREEN [BBK] Routine Lab 01/02/21 07:11 Ordered Lactated Ringers [Ringers, Lactated] 1,000 ml Med 01/02/21 07:15 Ordered IV ASDIRECTED Nalbuphine [Nubain] Med 01/02/21 07:11 Ordered 10 mg IVPUSH Q2H PRN Ondansetron [Zofran] Med 01/02/21 07:11 Ordered 4 mg IVPUSH Q4H PRN Oxytocin/Lactated Ringers [Pitocin in LR 10 Units/1,000 Med 01/02/21 07:15 Ordered ML] 10 unit in 1,000 ml IV .CONTINUOUS Oxytocin/Lactated Ringers [Pitocin in LR 10 Units/1,000 Med 01/02/21 07:15 Ordered ML] 10 unit in 1,000 ml IV TITRATE Sodium Chloride 0.9% [Saline Flush] Med 01/02/21 07:11 Ordered 10 ml FLUSH ASDIRECTED PRN Electronic Heart Tones Internal [WOMSER] Per Unit Oth 01/02/21 07:11 Ordered Routine Peripheral IV Insertion Adult [OM.PC] Routine Oth 01/02/21 07:11 Ordered Resuscitation Status Routine Resus Stat 01/02/21 07:11 Ordered Assessment/Plan Comment:: * Labs * GBS negative, no need for antibiotics * Pitocin and AROM for IOL * Pain management per patient preference * Anticipate
[2021-01-02] MEDS ORDERED: Oxytocin/Lactated Ringers 10 UNIT/1,000 ML BAG IV SCH ×2 (07:15)
[2021-01-02] MEDS: Lactated Ringers 1,000 ML IV SCH ×2 (08:09→10:53)
[2021-01-02] MEDS ORDERED: diphenhydrAMINE 50 MG/ML SDV IVPUSH PRN (09:40)
[2021-01-02] MEDS ORDERED: Bupivacaine/fentaNYL/NS 100 ML Bag EPIDUR PRN (09:40)
[2021-01-02] MEDS ORDERED: ePHEDrine 50 MG/ML SDV IVPUSH PRN (09:40)
[2021-01-02] MEDS ORDERED: fentaNYL 100 MCG/2 ML SDV EPIDUR PRN (09:40)
[2021-01-02] MEDS ORDERED: Bupivacaine 0.25% 10 ML SDV ONE (10:00)
--- NOTE | 2021-01-02 10:43 | PCM.PREANE ---
Preanesthetic Assessment - Procedure Proposed Procedure: hira - Anesthesia/Transfusion/Family Hx Anesthesia History: Prior Anesthesia Without Reaction Family History of Anesthesia Reaction: No Transfusion History: No Prior Transfusion(s) - Review of Systems General: No Symptoms Pulmonary: No Symptoms Cardiovascular: Chest Pain (heart burn) Gastrointestinal: No Symptoms Neurological: No Symptoms Other: Reports: None - Physical Assessment Vital Signs: Last Vital Signs Temp 99.5 F 01/02/21 07:11 Pulse 96 01/02/21 07:11 Resp 16 01/02/21 07:11 BP 122/76 01/02/21 07:11 Pulse Ox 100 01/02/21 07:11 Height: 5 ft 4 in Weight: 85.865 kg ASA Class: 2 Mental Status: Alert & Oriented x3 Airway Class: Mallampati = 1 Dentition: Reports: Normal Dentition Thyro-Mental Finger Breadths: 3 Mouth Opening Finger Breadths: 3 ROM/Head Extension: Other Lungs: Clear to Auscultation Cardiovascular: Regular Rate, Regular Rhythm - Lab Values: Laboratory Last Values WBC 13.39 K/mm3 (3.98-10.04) H 01/02/21 07:30 RBC 3.62 M/mm3 (3.98-5.22) L 01/02/21 07:30 Hgb 11.0 gm/dl (11.2-15.7) L 01/02/21 07:30 Hct 34.4 % (34.1-44.9) 01/02/21 07:30 MCV 95.0 fl (79.4-94.8) H 01/02/21 07:30 MCH 30.4 pg (25.6-32.2) 01/02/21 07:30 MCHC 32.0 g/dl (32.2-35.5) L 01/02/21 07:30 RDW Std Deviation 48.1 fL (36.4-46.3) H 01/02/21 07:30 Plt Count 272 K/mm3 (182-369) 01/02/21 07:30 MPV 10.1 fl (9.4-12.3) 01/02/21 07:30 SARS-CoV-2 RNA (BE) Negative (NEGATIVE) 01/02/21 07:43 Blood Type O POSITIVE 01/02/21 07:30 Gel Antibody Screen Negative 01/02/21 07:30 - Allergies Allergies/Adverse Reactions: Allergies Allergy/AdvReac Type Severity Reaction Status Date / Time No Known Allergies Allergy Verified 01/02/21 07:24 - Blood Blood Available: No - Acknowledgements Anesthesia Type Planned: Epidural Pt an Appropriate Candidate for the Planned Anesthesia: Yes Alternatives and Risks of Anesthesia Discussed w Pt/Guardian: Yes Pt/Guardian Understands and Agrees with Anesthesia Plan: Yes PreAnesthesia Questionnaire - Past Health History Medical/Surgical History: Denies Medical/Surgical History HEENT History: Reports: Other (See Below) Other HEENT History: congested for past week Cardiovascular History: Reports: Other (See Below) Other Cardiovascular History: patient states she had cardiac workup in 2017 but does not specifically know for what. 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 Para: 1 Other OB/BYN History: , currently 31 weeks pragnant Neurological History: Reports: Migraines Endocrine/Metabolic History: Reports: None - Past Surgical History Head Surgeries/Procedures: Reports: None HEENT Surgical History: Reports: None - SUBSTANCE USE Tobacco Use Status *Q: Never Tobacco User Tobacco Use Within Last Twelve Months: No Second Hand Smoke Exposure: No Days Per Week of Alcohol Use: 0 Recreational Drug Use History: No - HOME MEDS Home Medications: Home Meds Vits #93/Iron Fum/FA [ Formula Tablet] 1 tab PO DAILY 11/20/19 [History] - CURRENT (IN HOUSE) MEDS Current Meds: Current Medications Diphenhydramine HCl (Diphenhydramine 50 Mg/Ml Sdv) 25 mg IVPUSH Q6H PRN PRN Reason: pruritis Ephedrine Sulfate (Ephedrine 50 Mg/Ml Sdv) 5 mg IVPUSH ASDIRECTED PRN PRN Reason: Hypotension Fentanyl (Fentanyl 100 Mcg/2 Ml Sdv) 100 mcg EPIDUR Q3H PRN PRN Reason: Pain Last Admin: 01/02/21 10:01 Dose: 100 mcg Documented by: Fentanyl/Bupivacaine HCl (Bupivacaine/Fentanyl/Ns 100 Ml Bag) 100 ml EPIDUR ASDIRECTED PRN PRN Reason: Pain Last Admin: 01/02/21 10:01 Dose: 100 ml Documented by: Oxytocin/Lactated Ringer's (Pitocin In Lr 10 Units/1,000 Ml) 10 unit in 1,000 mls @ 12 mls/hr IV TITRATE RAOUL; Protocol Last Titration: 01/02/21 09:27 Dose: 6 munits/min, 36 mls/hr Documented by: Oxytocin/Lactated Ringer's (Pitocin In Lr 10 Units/1,000 Ml) 10 unit in 1,000 mls @ 500 mls/hr IV .CONTINUOUS RAOUL Lactated Ringer's (Ringers, Lactated) 1,000 mls @ 40 mls/hr IV ASDIRECTED RAOUL Last Infusion: 01/02/21 09:56 Dose: Infused Documented by: Nalbuphine HCl (Nalbuphine 10 Mg/1 Ml Vial) 10 mg IVPUSH Q2H PRN PRN Reason: Pain Ondansetron HCl (Ondansetron 4 Mg/2 Ml Sdv) 4 mg IVPUSH Q4H PRN PRN Reason: Nausea/Vomiting Sodium Chloride (Sodium Chloride 0.9% 10 Ml Syringe) 10 ml FLUSH ASDIRECTED PRN PRN Reason: Keep Vein Open
--- NOTE | 2021-01-02 12:14 | PCM.PNLD ---
Labor Progress Note - VS & Meds Vital Signs: Last Vital Signs Temp 37.5 C 01/02/21 07:11 Pulse 96 01/02/21 07:11 Resp 16 01/02/21 07:11 BP 122/76 01/02/21 07:11 Pulse Ox 100 01/02/21 07:11 Active Medications: Current Medications Diphenhydramine HCl (Diphenhydramine 50 Mg/Ml Sdv) 25 mg IVPUSH Q6H PRN PRN Reason: pruritis Ephedrine Sulfate (Ephedrine 50 Mg/Ml Sdv) 5 mg IVPUSH ASDIRECTED PRN PRN Reason: Hypotension Fentanyl (Fentanyl 100 Mcg/2 Ml Sdv) 100 mcg EPIDUR Q3H PRN PRN Reason: Pain Last Admin: 01/02/21 10:01 Dose: 100 mcg Documented by: Fentanyl/Bupivacaine HCl (Bupivacaine/Fentanyl/Ns 100 Ml Bag) 100 ml EPIDUR ASDIRECTED PRN PRN Reason: Pain Last Admin: 01/02/21 10:01 Dose: 100 ml Documented by: Oxytocin/Lactated Ringer's (Pitocin In Lr 10 Units/1,000 Ml) 10 unit in 1,000 mls @ 12 mls/hr IV TITRATE RAOUL; Protocol Last Titration: 01/02/21 12:08 Dose: 6 munits/min, 36 mls/hr Documented by: Oxytocin/Lactated Ringer's (Pitocin In Lr 10 Units/1,000 Ml) 10 unit in 1,000 mls @ 500 mls/hr IV .CONTINUOUS RAOUL Lactated Ringer's (Ringers, Lactated) 1,000 mls @ 40 mls/hr IV ASDIRECTED RAOUL Last Admin: 01/02/21 10:53 Dose: 125 mls/hr Documented by: Nalbuphine HCl (Nalbuphine 10 Mg/1 Ml Vial) 10 mg IVPUSH Q2H PRN PRN Reason: Pain Ondansetron HCl (Ondansetron 4 Mg/2 Ml Sdv) 4 mg IVPUSH Q4H PRN PRN Reason: Nausea/Vomiting Sodium Chloride (Sodium Chloride 0.9% 10 Ml Syringe) 10 ml FLUSH ASDIRECTED PRN PRN Reason: Keep Vein Open - Uterine Contractions Uterine Monitoring Mode: External [place] Contraction Intensity: Moderate to Strong Uterine Resting Tone: Soft - Monitoring Monitor Mode: External Ultrasound Heart Rate (FHR) Baseline: 135 Heart Rate (FHR) Variability: Moderate (6-25 bmp) Accelerations: Present, 15x15 Decelerations: None - Vaginal Exam Dilation (cm): 7-8 Effacement (Percent): 75 Station: -1 Cervical Position: Midposition - Labor Progress (Free Text) Labor Progress: comfortable with epidural. AROM done with release of clear fluid. Continue present management
[2021-01-02] MEDS ORDERED: Witch Hazel Medicated Pads 40/Jar TOP PRN (17:09)
[2021-01-02] MEDS ORDERED: Docusate Sodium 100 MG Cap PO PRN (17:09)
[2021-01-02] MEDS ORDERED: Benzocaine/Menthol 20%-0.5% Spray 56 GM Canister TOP PRN (17:09)
[2021-01-02] MEDS ORDERED: Acetaminophen 325 MG Tab PO PRN (17:09)
--- NOTE | 2021-01-02 17:10 | PCM.DEL ---
L & D Note - General Info Date of Service: 01/02/21 - Delivery Note Labor: Induced by ARM, Induced by Oxytocin Delivery Outcome: Livebirth Infant Delivery Method: Spontaneous Vaginal Delivery-Single Infant Delivery Mode: Spontaneous Presentation: Right Occiput Anterior (ANT) Nuchal Cord: None Anesthesia Type: Epidural Amniotic Fluid Description: Clear Episiotomy Type: None Laceration: None Placenta: Intact, Spontaneous Cord: 3 Vessels Estimated Blood Loss: 100 Resuscitation Needed: No [place]: Bulb Syringe, Stimulated, Warmed, [place] Used Delivery Comments (Free Text/Narrative):: Patient found to be complete and began pushing. With maternal pushing effort head delivered from ANT presentation. No nuchal cord present. With gentle downward traction the shoulders and body delivered. placed on maternal abdomen. Cord clamped and cut. Cord blood obtained. Placenta al lowed time to separate and expelled intact. Inspection of perineum showed no lacerations - General Info Date of Service: 01/02/21 - Patient Data Vitals - Most Recent: Last Vital Signs Temp 37.5 C 01/02/21 07:11 Pulse 96 01/02/21 07:11 Resp 16 01/02/21 07:11 BP 122/76 01/02/21 07:11 Pulse Ox 100 01/02/21 07:11 Weight - Most Recent: 85.865 kg I&O - Last 24 Hours: Intake & Output 01/02/21 01/02/21 01/02/21 06:59 14:59 22:59 Intake Total 4000 Output Total 1500 900 Balance -1500 3100 - Problem List & Annotations (1) 39 weeks gestation of SNOMED Code(s): 41973616 Code(s): Z3A.39 - 39 WEEKS GESTATION OF Status: Acute Current Visit: Yes (2) Elective induction of labor planned SNOMED Code(s): 442056846 Code(s): [id number] - Status: Acute Current Visit: Yes (3) Vaginal delivery SNOMED Code(s): 114292601 Code(s): O80 - ENCOUNTER FOR FULL-TERM UNCOMPLICATED DELIVERY Status: Acute Current Visit: Yes - Problem List Review Problem List Initiated/Reviewed/Updated: Yes - My Orders Last 24 Hours: My Active Orders 01/02/21 Breakfast Regular Diet [DIET] 01/02/21 07:11 Patient Status [ADT] Routine Communication Order [RC] ASDIRECTED Communication Order [RC] ASDIRECTED Communication Order [RC] ASDIRECTED Notify Provider [RC] ASDIRECTED Notify Provider [RC] PRN Vital Signs [RC] ASDIRECTED Nalbuphine [Nubain] 10 mg IVPUSH Q2H PRN Ondansetron [Zofran] 4 mg IVPUSH Q4H PRN Sodium Chloride 0.9% [Saline Flush] 10 ml FLUSH ASDIRECTED PRN Electronic Heart Tones Internal [WOMSER] Per Unit Routine Peripheral IV Insertion Adult [OM.PC] Routine Resuscitation Status Routine 01/02/21 07:12 Peripheral IV Care [RC] . DIRECTED Up ad [place] [RC] ASDIRECTED 01/02/21 07:15 Lactated Ringers [Ringers, Lactated] 1,000 ml IV ASDIRECTED Oxytocin/Lactated Ringers [Pitocin in LR 10 Units/1,000 ML] 10 unit in 1,000 ml IV .CONTINUOUS Oxytocin/Lactated Ringers [Pitocin in LR 10 Units/1,000 ML] 10 unit in 1,000 ml IV TITRATE 01/02/21 07:30 RAPID PLASMA REAGIN,RPR [CHEM] Routine 01/02/21 17:08 Patient Status Manage Transfer [TRANSFER] Routine - Assessment Assessment:: PPD#0 - Plan Plan:: * Routine cares * Breast feeding * Discharge home in 1-2 days
[2021-01-02] MEDS: Ibuprofen 600 MG Tab PO PRN (23:57)
--- NOTE | 2021-01-03 07:11 | PCM.PNPP ---
- General Info Date of Service: 01/03/21 Functional Status: Reports: Pain Controlled, Tolerating Diet, Ambulating, Urinating - Review of Systems General: Reports: No Symptoms Pulmonary: Reports: No Symptoms Cardiovascular: Reports: No Symptoms Gastrointestinal: Reports: No Symptoms Genitourinary: Reports: No Symptoms Musculoskeletal: Reports: No Symptoms Neurological: Reports: No Symptoms - Patient Data Vital Signs - Most Recent: Last Vital Signs Temp 36.4 C 01/03/21 04:32 Pulse 90 01/03/21 04:32 Resp 14 01/03/21 04:32 BP 106/56 L 01/03/21 04:32 Pulse Ox 97 01/03/21 04:32 Weight - Most Recent: 85.865 kg I&O - Last 24 Hours: Intake & Output 01/02/21 01/03/21 01/03/21 22:59 06:59 14:59 Intake Total 4000 Output Total 1050 Balance 2950 Lab Results - Last 24 Hours: Laboratory Results - last 24 hr 01/02/21 01/02/21 01/02/21 Range/Units 07:30 07:30 07:30 WBC 13.39 H (3.98-10.04) K/mm3 RBC 3.62 L (3.98-5.22) M/mm3 Hgb 11.0 L (11.2-15.7) gm/dl Hct 34.4 (34.1-44.9) % MCV 95.0 H (79.4-94.8) fl MCH 30.4 (25.6-32.2) pg MCHC 32.0 L (32.2-35.5) g/dl RDW Std Deviation 48.1 H (36.4-46.3) fL Plt Count 272 (182-369) K/mm3 MPV 10.1 (9.4-12.3) fl RPR Non-reactive (NONREACTIVE) SARS-CoV-2 RNA (BE) (NEGATIVE) Blood Type O POSITIVE Gel Antibody Screen Negative 01/02/21 Range/Units 07:43 WBC (3.98-10.04) K/mm3 RBC (3.98-5.22) M/mm3 Hgb (11.2-15.7) gm/dl Hct (34.1-44.9) % MCV (79.4-94.8) fl MCH (25.6-32.2) pg MCHC (32.2-35.5) g/dl RDW Std Deviation (36.4-46.3) fL Plt Count (182-369) K/mm3 MPV (9.4-12.3) fl RPR (NONREACTIVE) SARS-CoV-2 RNA (BE) Negative (NEGATIVE) Blood Type Gel Antibody Screen Med Orders - Current: Current Medications Acetaminophen (Acetaminophen 325 Mg Tab) 650 mg PO Q4H PRN PRN Reason: mild pain or fever Benzocaine/Menthol (Benzocaine/Menthol 20%-0.5% [place] 56 Gm Canister) 0 gm TOP ASDIRECTED PRN PRN Reason: Perineal Comfort Measure Last Admin: 01/02/21 17:26 Dose: 1 can Documented by: Docusate Sodium (Docusate Sodium 100 Mg Cap) 100 mg PO BID PRN PRN Reason: Constipation Last Admin: 01/02/21 23:57 Dose: 100 mg Documented by: Ibuprofen (Ibuprofen 600 Mg Tab) 600 mg PO Q4H PRN PRN Reason: Mild pain or fever Last Admin: 01/02/21 23:57 Dose: 600 mg Documented by: Lewis Campbell (Lewis Campbell Medicated Pads 40/Jar) 1 pad TOP ASDIRECTED PRN PRN Reason: Perineal Comfort Measure Last Admin: 01/02/21 17:26 Dose: 1 tub Documented by: Discontinued Medications Diphenhydramine HCl (Diphenhydramine 50 Mg/Ml Sdv) 25 mg IVPUSH Q6H PRN PRN Reason: pruritis Ephedrine Sulfate (Ephedrine 50 Mg/Ml Sdv) 5 mg IVPUSH ASDIRECTED PRN PRN Reason: Hypotension Fentanyl (Fentanyl 100 Mcg/2 Ml Sdv) 100 mcg EPIDUR Q3H PRN PRN Reason: Pain Last Admin: 01/02/21 10:01 Dose: 100 mcg Documented by: Fentanyl/Bupivacaine HCl (Bupivacaine/Fentanyl/Ns 100 Ml Bag) 100 ml EPIDUR ASDIRECTED PRN PRN Reason: Pain Last Admin: 01/02/21 10:01 Dose: 100 ml Documented by: Oxytocin/Lactated Ringer's (Pitocin In Lr 10 Units/1,000 Ml) 10 unit in 1,000 mls @ 12 mls/hr IV TITRATE RAOUL; Protocol Last Titration: 01/02/21 12:08 Dose: 6 munits/min, 36 mls/hr Documented by: Oxytocin/Lactated Ringer's (Pitocin In Lr 10 Units/1,000 Ml) 10 unit in 1,000 mls @ 500 mls/hr IV .CONTINUOUS RAOUL Lactated Ringer's (Ringers, Lactated) 1,000 mls @ 40 mls/hr IV ASDIRECTED RAOUL Last Admin: 01/02/21 10:53 Dose: 125 mls/hr Documented by: Nalbuphine HCl (Nalbuphine 10 Mg/1 Ml Vial) 10 mg IVPUSH Q2H PRN PRN Reason: Pain Ondansetron HCl (Ondansetron 4 Mg/2 Ml Sdv) 4 mg IVPUSH Q4H PRN PRN Reason: Nausea/Vomiting Sodium Chloride (Sodium Chloride 0.9% 10 Ml Syringe) 10 ml FLUSH ASDIRECTED PRN PRN Reason: Keep Vein Open - Interaction Disposition, : Foster in Room with Family Infant Interaction: Holding Infant Feeding: Breastfed ; Nursed Well Support Person: - Recovery Exam Fundal Tone: Firm Fundal Level: At Umbilicus Fundal Placement: Midline Lochia Amount: Small Lochia Color: Rubra/Red Perineum Description: Intact, Minimal Bruising/Swelling Episiotomy/Laceration: None Bladder Status: Voiding Urinary Elimination: Voided - Exam General: Alert, Oriented, Cooperative GI/Abdominal Exam: Soft, Non-Tender Extremities: Normal Inspection - Problem List & Annotations (1) 39 weeks gestation of SNOMED Code(s): 51567820 Code(s): Z3A.39 - 39 WEEKS GESTATION OF Status: Acute Current Visit: Yes (2) Elective induction of labor planned SNOMED Code(s): 553651672 Code(s): [id number] - Status: Acute Current Visit: Yes (3) Vaginal delivery SNOMED Code(s): 210603535 Code(s): O80 - ENCOUNTER FOR FULL-TERM UNCOMPLICATED DELIVERY Status: Acute Current Visit: Yes - Problem List Review Problem List Initiated/Reviewed/Updated: Yes - My Orders Last 24 Hours: My Active Orders 01/02/21 07:11 Resuscitation Status Routine 01/02/21 Dinner Regular Diet [DIET] 01/02/21 17:09 Activity as Tolerated [RC] PER UNIT ROUTINE Vital Signs [RC] ,,, Acetaminophen [TylenoL] 650 mg PO Q4H PRN Benzocaine/Menthol [Dermoplast Pain Relief [place]] See Dose Instructions TOP ASDIRECTED PRN Docusate Sodium [Colace] 100 mg PO BID PRN Ibuprofen [Motrin] 600 mg PO Q4H PRN witch Timothy [Tucks] 1 pad TOP ASDIRECTED PRN Assess Lochia [WOMSER] Per Unit Routine Assess Uterine Involution [WOMSER] Per Unit Routine Breast Pump [WOMSER] Per Unit Routine Ice Therapy [OM.PC] Per Unit Routine Perineal Care [OM.PC] Per Unit Routine Peripheral IV Discontinue [OM.PC] Routine Sitz Bath [OM.PC] Per Unit Routine 01/02/21 17:15 Heat Therapy [OM.PC] PRN 01/03/21 07:11 Ready for Discharge [RC] PER UNIT ROUTINE 01/03/21 17:15 Heat Therapy [OM.PC] PRN - Assessment Assessment:: PPD#1 - Plan Plan:: * Routine cares * Breast feeding * Discharge today
--- NOTE | 2021-01-03 07:12 | PCM.DCSUM1 ---
Discharge Summary - Discharge Data Discharge Date: 01/03/21 Discharge Disposition: Home, Self-Care 01 Condition: Good - Referral to Home Health Primary Care Physician: Lida Molina MD - Discharge Diagnosis/Problem(s) (1) 39 weeks gestation of SNOMED Code(s): 40647465 ICD Code: Z3A.39 - 39 WEEKS GESTATION OF Status: Acute Current Visit: Yes (2) Elective induction of labor planned SNOMED Code(s): 157680177 ICD Code: [id number] - Status: Acute Current Visit: Yes (3) Vaginal delivery SNOMED Code(s): 416154449 ICD Code: O80 - ENCOUNTER FOR FULL-TERM UNCOMPLICATED DELIVERY Status: Acute Current Visit: Yes - Patient Summary/Data Complications: None Consults: None Recommended Follow-up Testing/Procedures: Follow up in 3 weeks for check Hospital Course: 25 y/o at 39 2/7 wks presented for IOL. Done with pitocin and AROM. She progressed well to complete dilation and underwent an uncomplicated . See delivery note. she did well and was discharged home on PPD#1 - Patient Instructions Diet: Regular Diet as Tolerated Activity: As Tolerated Activity, Other: Pelvic rest for 6 weeks Driving: May Drive Today Showering/Bathing: May Shower Showering/Bathing, Other: May Bathe Notify Provider of: Fever, Increased Pain, Swelling and Redness, Drainage, Nausea and/or Vomiting - Discharge Plan *PRESCRIPTION DRUG MONITORING PROGRAM REVIEWED*: No *COPY OF PRESCRIPTION DRUG MONITORING REPORT IN PATIENT KOBY: No Home Medications: Home Meds Vits #93/Iron Fum/FA [ Formula Tablet] 1 tab PO DAILY 11/20/19 [History] Acetaminophen [Tylenol] 325 mg PO Q4H PRN 01/02/21 [History] Docusate Sodium [Colace] 100 mg PO BID PRN cap 01/03/21 [Rx] Ibuprofen [Motrin] 600 mg PO Q4H PRN tablet 01/03/21 [Rx] Patient Handouts: Breast Pumping Tips, and Self-Care, Care After Vaginal Delivery Referrals: Lida Molina MD [Primary Care Provider] - (3 weeks for check ) - Discharge Summary/Plan Comment DC Time >30 min.: No - Patient Data Vitals - Most Recent: Last Vital Signs Temp 36.4 C 01/03/21 04:32 Pulse 90 01/03/21 04:32 Resp 14 01/03/21 04:32 BP 106/56 L 01/03/21 04:32 Pulse Ox 97 01/03/21 04:32 Weight - Most Recent: 85.865 kg I&O - Last 24 hours: Intake & Output 01/02/21 01/03/21 01/03/21 22:59 06:59 14:59 Intake Total 4000 Output Total 1050 Balance 2950 Lab Results - Last 24 hrs: Laboratory Results - last 24 hr 01/02/21 01/02/21 01/02/21 Range/Units 07:30 07:30 07:30 WBC 13.39 H (3.98-10.04) K/mm3 RBC 3.62 L (3.98-5.22) M/mm3 Hgb 11.0 L (11.2-15.7) gm/dl Hct 34.4 (34.1-44.9) % MCV 95.0 H (79.4-94.8) fl MCH 30.4 (25.6-32.2) pg MCHC 32.0 L (32.2-35.5) g/dl RDW Std Deviation 48.1 H (36.4-46.3) fL Plt Count 272 (182-369) K/mm3 MPV 10.1 (9.4-12.3) fl RPR Non-reactive (NONREACTIVE) SARS-CoV-2 RNA (BE) (NEGATIVE) Blood Type O POSITIVE Gel Antibody Screen Negative 01/02/21 Range/Units 07:43 WBC (3.98-10.04) K/mm3 RBC (3.98-5.22) M/mm3 Hgb (11.2-15.7) gm/dl Hct (34.1-44.9) % MCV (79.4-94.8) fl MCH (25.6-32.2) pg MCHC (32.2-35.5) g/dl RDW Std Deviation (36.4-46.3) fL Plt Count (182-369) K/mm3 MPV (9.4-12.3) fl RPR (NONREACTIVE) SARS-CoV-2 RNA (BE) Negative (NEGATIVE) Blood Type Gel Antibody Screen Med Orders - Current: Current Medications Acetaminophen (Acetaminophen 325 Mg Tab) 650 mg PO Q4H PRN PRN Reason: mild pain or fever Benzocaine/Menthol (Benzocaine/Menthol 20%-0.5% [place] 56 Gm Canister) 0 gm TOP ASDIRECTED PRN PRN Reason: Perineal Comfort Measure Last Admin: 01/02/21 17:26 Dose: 1 can Documented by: Docusate Sodium (Docusate Sodium 100 Mg Cap) 100 mg PO BID PRN PRN Reason: Constipation Last Admin: 01/02/21 23:57 Dose: 100 mg Documented by: Ibuprofen (Ibuprofen 600 Mg Tab) 600 mg PO Q4H PRN PRN Reason: Mild pain or fever Last Admin: 01/02/21 23:57 Dose: 600 mg Documented by: Lewis Campbell (Lewis Campbell Medicated Pads 40/Jar) 1 pad TOP ASDIRECTED PRN PRN Reason: Perineal Comfort Measure Last Admin: 01/02/21 17:26 Dose: 1 tub Documented by: Discontinued Medications Diphenhydramine HCl (Diphenhydramine 50 Mg/Ml Sdv) 25 mg IVPUSH Q6H PRN PRN Reason: pruritis Ephedrine Sulfate (Ephedrine 50 Mg/Ml Sdv) 5 mg IVPUSH ASDIRECTED PRN PRN Reason: Hypotension Fentanyl (Fentanyl 100 Mcg/2 Ml Sdv) 100 mcg EPIDUR Q3H PRN PRN Reason: Pain Last Admin: 01/02/21 10:01 Dose: 100 mcg Documented by: Fentanyl/Bupivacaine HCl (Bupivacaine/Fentanyl/Ns 100 Ml Bag) 100 ml EPIDUR ASDIRECTED PRN PRN Reason: Pain Last Admin: 01/02/21 10:01 Dose: 100 ml Documented by: Oxytocin/Lactated Ringer's (Pitocin In Lr 10 Units/1,000 Ml) 10 unit in 1,000 mls @ 12 mls/hr IV TITRATE RAOUL; Protocol Last Titration: 01/02/21 12:08 Dose: 6 munits/min, 36 mls/hr Documented by: Oxytocin/Lactated Ringer's (Pitocin In Lr 10 Units/1,000 Ml) 10 unit in 1,000 mls @ 500 mls/hr IV .CONTINUOUS RAOUL Lactated Ringer's (Ringers, Lactated) 1,000 mls @ 40 mls/hr IV ASDIRECTED RAOUL Last Admin: 01/02/21 10:53 Dose: 125 mls/hr Documented by: Nalbuphine HCl (Nalbuphine 10 Mg/1 Ml Vial) 10 mg IVPUSH Q2H PRN PRN Reason: Pain Ondansetron HCl (Ondansetron 4 Mg/2 Ml Sdv) 4 mg IVPUSH Q4H PRN PRN Reason: Nausea/Vomiting Sodium Chloride (Sodium Chloride 0.9% 10 Ml Syringe) 10 ml FLUSH ASDIRECTED PRN PRN Reason: Keep Vein Open
--- NOTE | 2021-01-03 08:14 | PCM48HPAN ---
Post Anesthesia Note - EVALUATION WITHIN 48HRS OF ANESTHETIC Vital Signs in Normal Range: Yes Patient Participated in Evaluation: Yes Respiratory Function Stable: Yes Airway Patent: Yes Cardiovascular Function Stable: Yes Hydration Status Stable: Yes Pain Control Satisfactory: Yes Nausea and Vomiting Control Satisfactory: Yes Mental Status Recovered: Yes Vital Signs: Last Vital Signs Temp 36.4 C 01/03/21 04:32 Pulse 90 01/03/21 04:32 Resp 14 01/03/21 04:32 BP 106/56 L 01/03/21 04:32 Pulse Ox 97 01/03/21 04:32
[2021-01-03] MEDS: Ibuprofen 600 MG Tab PO PRN (08:31)
[2021-01-03 09:19] VITALS: BP 96/67; PULSE 72
== END 2021-01-03 18:55 | disposition home or self-care (01) | DRG 807 ==
LOC: JD.OB 07:06 → OBSVTOIN 15:23 → JD.OB 15:24
PROVIDERS: ADMIT Obstetrics & Gynecology; ATTEND Obstetrics & Gynecology
PROC: 10E0XZZ Delivery of Products of Conception, External Approach (ICD-10-PCS; principal; 2021-01-02)
PROC: 10907ZC Drainage of Amniotic Fluid, Therapeutic from Products of Conception, Via Natural or Artificial Opening (ICD-10-PCS; 2021-01-02)
PROC: 3E033VJ Introduction of Other Hormone into Peripheral Vein, Percutaneous Approach (ICD-10-PCS; 2021-01-02)
PROC: 4A1HXCZ Monitoring of Products of Conception, Cardiac Rate, External Approach (ICD-10-PCS; 2021-01-02)
PROC: 3E0R3BZ Introduction of Anesthetic Agent into Spinal Canal, Percutaneous Approach (ICD-10-PCS; 2021-01-02)
DX: O80 Encounter for full-term uncomplicated delivery (principal); Z37.0 Single live birth; Z3A.39 39 weeks gestation of pregnancy; Z20.822 Contact with and (suspected) exposure to COVID-19
CPT/HCPCS: 01967; 36415; 51702; 59025; 59409; 85027; 86592; 86850; 86900; 86901; A9270-GY; J2590; J3010; J3490; J7120; U0002

== ENCOUNTER 2021-01-14 11:23 | Emergency (ER) | payer MEDICAID ==
[2021-01-14 11:34] VITALS: BP 128/83; PULSE 95
[2021-01-14] MEDS ORDERED: Dexamethasone 10 MG/ML SDV IM ONE (11:44)
[2021-01-14] MEDS ORDERED: Ketorolac 30 MG/ML SDV IM ONE (11:44)
--- NOTE | 2021-01-14 11:50 | EDM.PDOC ---
ED HPI GENERAL MEDICAL PROBLEM - General Chief Complaint: Lower Extremity Injury/Pain Stated Complaint: L LEG PAIN/ 2 WEEKS Time Seen by Provider: 01/14/21 11:33 Source of Information: Reports: Patient, RN Notes Reviewed History Limitations: Reports: No Limitations - History of Present Illness INITIAL COMMENTS - FREE TEXT/NARRATIVE: Patient is a 25-year-old female who presents to the ED for evaluation of her left leg pain. Patient notes that she gave vaginal roughly 2 weeks ago, which she did receive an epidural for as well. She states the pain starts in h er left lower back, and shoots down her left leg, then wraps over to the front of her foot. She states that sitting, laying down hurts quite a bit, she notes it is quite painful to walk and bear weight on the leg much at all. She denies any sort of bowel or urinary incontinence. She has been using hot compresses to this, along with ice compresses. She has been using ibuprofen and Tylenol at [facility], she did fill a prescription for hydrocodone/acetaminophen 5/325 mg, but she states that this has not been helping as well. She denies any fevers or chills, cough or shortness of breath, nausea/vomiting/diarrhea. Left Leg Pain Score (Numeric/FACES): 10 - Related Data Allergies Allergy/AdvReac Type Severity Reaction Status Date / Time No Known Allergies Allergy Verified 01/14/21 11:34 Home Meds: Home Meds Hydrocodone/Acetaminophen [Hydrocodone-Acetamin 5-325 mg] 1 - 2 tab PO Q6H PRN 0 01/14/21 [History] predniSONE 20 mg PO ASDIRECTED #15 tab 01/14/21 [Rx] Past Medical History - Past Health History Medical/Surgical History: Denies Medical/Surgical History HEENT History: Reports: Other (See Below) Other HEENT History: congested for past week Cardiovascular History: Reports: Other (See Below) Other Cardiovascular History: patient states she had cardiac workup in 2017 but does not specifically know for what. Respiratory History: Reports: None Gastrointestinal History: Reports: GERD Genitourinary History: Reports: UTI, Recurrent PALLIATIVE CARE SPECIALIST History: Reports: Other PALLIATIVE CARE SPECIALIST History: , currently 31 weeks pragnant Neurological History: Reports: Migraines Endocrine/Metabolic History: Reports: None - Past Surgical History Head Surgeries/Procedures: Reports: None HEENT Surgical History: Reports: None Social & Family History - Family History Family Medical History: No Pertinent Family History - Tobacco Use Tobacco Use Status *Q: Never Tobacco User Second Hand Smoke Exposure: No - Caffeine Use Caffeine Use: Reports: Coffee - Recreational Drug Use Recreational Drug Use: No Review of Systems - Review of Systems Review Of Systems: Comprehensive ROS is negative, except as noted in HPI. ED EXAM, GENERAL - Physical Exam Exam: See Below Exam Limited By: No Limitations General Appearance: Alert, WD/WN, No Apparent Distress Respiratory/Chest: No Respiratory Distress, Lungs Clear, Normal Breath Sounds, No Accessory Muscle Use, Chest Non-Tender Cardiovascular: Normal Peripheral Pulses, Regular Rate, Rhythm, No Edema, No Murmur Peripheral Pulses: 2+: Radial (L), Radial (R) Back Exam: Normal Inspection Extremities: Normal Inspection, Normal Capillary Refill, Limited Range of Motion (of left leg d/t pain) Neurological: Alert, Oriented, Normal Cognition, No Motor/Sensory Deficits Psychiatric: Normal Affect, Normal Mood Skin Exam: Warm, Dry, Intact, Normal Color, No Rash Course - Vital Signs Last Recorded V/S: Last Vital Signs Temp 96.9 F 01/14/21 11:32 Pulse 95 01/14/21 11:32 Resp 16 01/14/21 11:32 BP 128/83 01/14/21 11:32 Pulse Ox 98 01/14/21 11:32 - Orders/Labs/Meds Orders: Active Orders 24 hr Category Date Time Status Ketorolac [Toradol] Med 01/14/21 11:44 Once 30 mg IM ONETIME ONE dexAMETHasone [Decadron] Med 01/14/21 11:44 Once 10 mg IM ONETIME ONE - Re-Assessments/Exams Free Text/Narrative Re-Assessment/Exam: 01/14/21 11:47 Patient resents to the ED for her left leg pain. This does seem like sciatica in nature, we will go ahead and treat as such she will get IM Toradol and IM Dexamethasone for initial management and get her home with a course of prednisone. Departure - Departure Time of Disposition: 11:49 Disposition: Home, Self-Care 01 Condition: Good Clinical Impression: Sciatica Qualifiers: Laterality: left Qualified Code(s): M54.32 - Sciatica, left side - Discharge Information *PRESCRIPTION DRUG MONITORING PROGRAM REVIEWED*: No *COPY OF PRESCRIPTION DRUG MONITORING REPORT IN PATIENT KOBY: No Instructions: Sciatica, [id number] Referrals: Lida Molina MD [Primary Care Provider] - Additional Instructions: You were seen in this ER for your left leg pain. This does clinically correlate with sciatica, management of this will be for oral steroids to help reduce nerve inflammation. While you were in the ER, you were given 2 injections, 1 was a steroid, another was an anti-inflammatory for initial management. You were started on a course of prednisone, you will need to take 1 tablet 2 times a day for the next 5 days, then 1 tablet once a day until gone. This medication was electronically sent to the [place] pharmacy located in the [facility] grocery store. If using ice packs or hot packs to the area seems to help, you may continue to use these. You may continue to use the hydrocodone tablets as given to you by your PALLIATIVE CARE SPECIALIST, for pain not relieved by conservative measures alone. Please be aware these medications can cause some harder stools, so I recommend that you start a stool softener like MiraLAX or Colace if you are going to use these medications. This may take a day or 2 to start feeling better, but you should feel better in a short amount of time. Please return to the ED if your symptoms change or worsen. Sepsis Event Note (ED) - Evaluation Sepsis Screening Result: No Definite Risk - Focused Exam Vital Signs: Vital Signs Temp Pulse Resp BP Pulse Ox 01/14/21 11:32 96.9 F 95 16 128/83 98 - My Orders Last 24 Hours: My Active Orders 01/14/21 11:44 Ketorolac [Toradol] 30 mg IM ONETIME ONE dexAMETHasone [Decadron] 10 mg IM ONETIME ONE - Assessment/Plan Last 24 Hours: My Active Orders 01/14/21 11:44 Ketorolac [Toradol] 30 mg IM ONETIME ONE dexAMETHasone [Decadron] 10 mg IM ONETIME ONE
== END 2021-01-14 12:30 | disposition home or self-care (01) ==
LOC: JD.ED 11:23
DX: O90.89 Other complications of the puerperium, not elsewhere classified (principal); M54.32 Sciatica, left side
CPT/HCPCS: 96372; 99283; J1100; J1885

== ENCOUNTER 2021-09-30 14:37 | Emergency (ER) | payer BC, SELFPAY ==
[2021-09-30 15:08] VITALS: BP 124/53; PULSE 100
--- NOTE | 2021-09-30 15:23 | EDM.PDOC ---
ED HPI GENERAL MEDICAL PROBLEM - General Chief Complaint: Respiratory Problem Stated Complaint: FEVER Time Seen by Provider: 09/30/21 14:42 Source of Information: Reports: Patient History Limitations: Reports: No Limitations - History of Present Illness INITIAL COMMENTS - FREE TEXT/NARRATIVE: The patient presents with her , sone and daughter for a fever, chills, cough, congestion and runny nose. This all started on Saturday. Now her children are sick. She has not been exposed to COVID as far as she knows. She has vomiting or diarrhea. Onset: Gradual Duration: Day(s): (4) Improves with: Reports: None Worsens with: Reports: None Associated Symptoms: Reports: Cough, Fever/Chills. Denies: Chest Pain, Headaches, Nausea/Vomiting, Shortness of Breath Generalized Pain Score (Numeric/FACES): 3 - Related Data Allergies Allergy/AdvReac Type Severity Reaction Status Date / Time shellfish derived Allergy Rash Verified 09/30/21 15:09 Home Meds: Home Meds Oseltamivir [Tamiflu] 75 mg PO BID #9 cap 09/30/21 [Rx] Past Medical History - Past Health History Medical/Surgical History: Denies Medical/Surgical History HEENT History: Reports: Other (See Below) Other HEENT History: congested for past week Cardiovascular History: Reports: Other (See Below) Other Cardiovascular History: patient states she had cardiac workup in 2017 but does not specifically know for what. 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 History: Reports: Other UI DEVELOPER WITH ANGULAR JS History: , currently 31 weeks pragnant Neurological History: Reports: Migraines Endocrine/Metabolic History: Reports: None - Infectious Disease History Infectious Disease History: Reports: Novel Coronavirus - Past Surgical History Head Surgeries/Procedures: Reports: None HEENT Surgical History: Reports: None Social & Family History - Family History Family Medical History: No Pertinent Family History - Tobacco Use Tobacco Use Status *Q: Never Tobacco User Second Hand Smoke Exposure: No - Caffeine Use Caffeine Use: Reports: None ED ROS GENERAL - Review of Systems Review Of Systems: See Below Constitutional: Reports: Fever HEENT: Reports: Other (congestion, runny nose and ear pressure) Respiratory: Reports: Cough Cardiovascular: Reports: No Symptoms Endocrine: Reports: No Symptoms GI/Abdominal: Reports: No Symptoms : Reports: No Symptoms Musculoskeletal: Reports: No Symptoms ED EXAM, GENERAL - Physical Exam Exam: See Below Exam Limited By: No Limitations General Appearance: Alert, No Apparent Distress Ears: Normal External Exam, Normal Canal, Other (Fluid behind both TMS but no erythema) Nose: Normal Inspection Throat/Mouth: Other (Mild erythema of the oropharynx) Head: Atraumatic, Normocephalic Neck: Normal Inspection, Supple, Non-Tender Respiratory/Chest: No Respiratory Distress, Lungs Clear, Normal Breath Sounds Cardiovascular: Regular Rate, Rhythm, No Edema, No Murmur GI/Abdominal: Soft, Non-Tender, No Organomegaly, No Mass Back Exam: Normal Inspection Course - Vital Signs Last Recorded V/S: Last Vital Signs Temp 97.1 F 09/30/21 15:07 Pulse 100 09/30/21 15:07 Resp 20 09/30/21 15:07 BP 124/53 L 09/30/21 15:07 Pulse Ox 100 09/30/21 15:07 - Orders/Labs/Meds Orders: Active Orders 24 hr Category Date Time Status Oseltamivir [Tamiflu] Med 09/30/21 16:02 Once 75 mg PO ONETIME ONE Labs: Laboratory Tests 09/30/21 Range/Units 14:50 Influenza Type A RNA Positive H (NEGATIVE) RSV RNA (INAAT) Negative (NEGATIVE) Influenza Type B RNA Negative (NEGATIVE) SARS-CoV-2 RNA (BE) Negative (NEGATIVE) - Re-Assessments/Exams Free Text/Narrative Re-Assessment/Exam: 09/30/21 15:23 I have ordered an influenza, COVID and RSV test. 09/30/21 16:02 The influenza is positive. I will give her a dose of tamiflu and a prescription for more. I will send the prescription to [facility]. Departure - Departure Time of Disposition: 16:05 Disposition: Home, Self-Care 01 Condition: Good Clinical Impression: Influenza A - Discharge Information *PRESCRIPTION DRUG MONITORING PROGRAM REVIEWED*: Not Applicable *COPY OF PRESCRIPTION DRUG MONITORING REPORT IN PATIENT KOBY: Not Applicable Prescriptions: Oseltamivir [Tamiflu] 75 mg PO BID #9 cap Referrals: Lida Molina MD [Primary Care Provider] - Forms: ED Department Discharge Additional Instructions: Drink plenty of fluids. Take tylenol or motrin as needed for pain or fever. Take the tamiflu 2 times per day for 5 days. Please return if you are worse. Sepsis Event Note (ED) - Focused Exam Vital Signs: Vital Signs Temp Pulse Resp BP Pulse Ox 09/30/21 15:07 97.1 F 100 20 124/53 L 100 - My Orders Last 24 Hours: My Active Orders 09/30/21 16:02 Oseltamivir [Tamiflu] 75 mg PO ONETIME ONE - Assessment/Plan Last 24 Hours: My Active Orders 09/30/21 16:02 Oseltamivir [Tamiflu] 75 mg PO ONETIME ONE
[2021-09-30 15:46] LABS: CORONAVIRUS COVID-19 NAA NEGATIVE (NEGATIVE)
[2021-09-30] MEDS ORDERED: Oseltamivir 75 MG Cap PO ONE (16:02)
== END 2021-09-30 16:47 | disposition home or self-care (01) ==
LOC: JD.ED 14:37
DX: J10.1 Influenza due to other identified influenza virus with other respiratory manifestations (principal); Z91.013 Allergy to seafood; Z20.822 Contact with and (suspected) exposure to COVID-19
CPT/HCPCS: 0241U; 99283